=== PATIENT | female | born 1935 | race Caucasian/White ===

== ENCOUNTER → 2016-11-17 | Outpatient (CLI) | payer MEDICARE ==
[~2016-11-17] MED LIST: ASPI81 CHEW; ENAL2.5 PO; ENAL5TAB PO
[2016-11-17 13:35] LABS: HDL CHOLESTEROL 68.3 MG/DL (40.0-60.0)
== END ==
LOC: OLAB 08:34
PROVIDERS: ATTEND Internal Medicine Interventional Cardiology
DX: E78.5 Hyperlipidemia, unspecified (principal)
CPT/HCPCS: 36415; 80061